=== PATIENT | female | born 1945 | race Caucasian/White ===

== ENCOUNTER 2019-09-12 23:46 | Inpatient (IN) | payer OTHER ==
[~2019-09-12] VITALS: Ht 167.6 cm; Wt 105.2 kg
[2019-09-13] MEDS ORDERED: SODIUM CHLORIDE 0.9% 500 ML IV ONE (00:35)
[2019-09-13] MEDS ORDERED: ONDANSETRON HCL 4 MG/2 ML VIAL IV ONE (00:45)
[2019-09-13 02:43] LABS: Basophils # (auto) 0.1 10 ^3/uL (0-0.2); Basophils % (auto) 0.5 % (0.0-2.0); Eosinophils # (auto) 0.1 10 ^3/uL (0-0.8); Eosinophils % (auto) 0.9 % (0.0-7.0); Hematocrit 43.2 % (36.0-46.0); Hemoglobin 15.1 g/dL (12.2-16.2); Lymphocytes # (auto) 1.9 10 ^3/uL (0.4-5.4); Lymphocytes % (auto) 17.7 % (10.0-50.0); Mean Corpuscular Hemoglobin 31.7 pg (28.0-32.0); Mean Corpuscular Hgb Conc. 34.9 g/dL (32.0-36.0); Mean Corpuscular Volume 90.9 fL (80.0-100.0); Monocytes # (auto) 0.7 10 ^3/uL (0-1.3); Monocytes % (auto) 6.8 % (0.0-12.0); Neutrophils # (auto) 8.1 10 ^3/uL (1.6-8.6); Neutrophils % (auto) 74.1 % (37.0-80.0); Platelet Count (auto) 114 10^3/uL (140-450); Red Blood Cells 4.76 10^6/uL (4.0-5.20); Red Cell Distribution Width 13.6 % (11.8-14.3); White Blood Cell 10.9 10^3/uL (4.4-10.8)
[2019-09-13 02:51] LABS: INR 2.69 (0.9-1.15); Partial Thromboplastin Time 30.4 sec (23.64-32.05)
[2019-09-13 02:55] LABS: Alanine Aminotransferase 137 U/L (13-56); Albumin 3.6 g/dL (3.4-5.0); Anion Gap 7 (5-15); Aspartate Aminotransferase 135 U/L (15-37); BUN/Creatinine Ratio 15.1; Blood Urea Nitrogen 16 mg/dL (7-18); Calcium 8.9 mg/dL (8.5-10.1); Carbon Dioxide 25 mmol/L (21-32); Chloride 105 mmol/L (98-107); GFR African American 65 mL/min; GFR Non-African American 54 mL/min; Glucose 90 mg/dL (74-106); Magnesium 1.8 mg/dL (1.6-2.6); Potassium 3.2 mmol/L (3.5-5.1); Sodium 137 mmol/L (136-145)
[2019-09-13 03:00] LABS: Alkaline Phosphatase 100 U/L (45-117); Bilirubin, Total 1.6 mg/dL (0.2-1.0); Total Protein 9.1 g/dL (6.4-8.2)
[2019-09-13] MEDS ORDERED: PROMETHAZINE HCL 25 MG/ML 1ML IV ONE ×2 (07:30→21:00)
[2019-09-13 08:10] LABS: Urine Bacteria NONE SEEN /hpf (None Seen); Urine Blood Negative /uL (Negative); Urine Specific Gravity 1.007 (1.001-1.035); Urine WBC <1 /hpf (0 - 5)
[2019-09-13] MEDS ORDERED: POTASSIUM EFFERVESENT TAB 25 MEQ PO ONE (08:15)
[2019-09-13] MEDS ORDERED: IOHEXOL 350 MG/ML 100ML IJ ONE (08:30)
[2019-09-13] MEDS ORDERED: PROCHLORPERAZINE EDISYLATE 5 MG/ML 2ML VIAL IV ONE (09:15)
[2019-09-13] MEDS ORDERED: MECLIZINE HCL 25 MG TAB PO ONE (16:15)
[2019-09-13] MEDS ORDERED: SODIUM CHLORIDE 0.9% 1,000 ML IV SCH (21:13)
[2019-09-13] MEDS ORDERED: ACETAMINOPHEN 325 MG TAB PO PRN (21:15)
[2019-09-13] MEDS ORDERED: DEXTROSE (50%) 50ML SYRG IV PRN (21:15)
[2019-09-13] MEDS ORDERED: cloNIDine HCL 0.1 MG TAB PO PRN (21:15)
[2019-09-13] MEDS ORDERED: DOCUSATE SOD 100 MG CAP PO PRN (21:15)
[2019-09-13] MEDS: metroNIDAZOLE 500MG/100ML 100 ML IV SCH (22:06)
[2019-09-13] MEDS: CARVEDILOL 3.125 MG TAB PO SCH (22:07)
[2019-09-13] MEDS: ONDANSETRON HCL 4 MG/2 ML VIAL IV PRN (22:27)
[2019-09-14] MEDS: ACCU-CHEK COMFORT CURVE STRIP VI SCH ×7 (00:36→23:51)
[2019-09-14] MEDS: InsuLIN REG 1unit/0.01ml Soln (100units/ml) SC SCH ×7 (00:36→23:53)
[2019-09-14] MEDS ORDERED: ATOR20TA50 PO (02:09)
[2019-09-14] MEDS ORDERED: AMLO10TA13 PO (02:09)
[2019-09-14] MEDS ORDERED: CARV12.544 PO (02:09)
[2019-09-14] MEDS ORDERED: INSUINJ2 SC (02:09)
[2019-09-14] MEDS ORDERED: WARF1TAB36 PO ×3 (02:09)
[2019-09-14] MEDS ORDERED: INSREG3 IV (02:09)
[2019-09-14] MEDS ORDERED: LOSA100T25 PO (02:09)
[2019-09-14 05:00] VITALS: BP 126/57
[2019-09-14] MEDS: metroNIDAZOLE 500MG/100ML 100 ML IV SCH ×4 (05:21→23:47)
[2019-09-14 06:07] LABS: Basophils # (auto) 0.1 10 ^3/uL (0-0.2); Basophils % (auto) 0.7 % (0.0-2.0); Eosinophils # (auto) 0.1 10 ^3/uL (0-0.8); Eosinophils % (auto) 1.1 % (0.0-7.0); Hematocrit 41.3 % (36.0-46.0); Hemoglobin 14.5 g/dL (12.2-16.2); Lymphocytes # (auto) 2.8 10 ^3/uL (0.4-5.4); Lymphocytes % (auto) 31.7 % (10.0-50.0); Mean Corpuscular Hemoglobin 31.9 pg (28.0-32.0); Mean Corpuscular Hgb Conc. 35.1 g/dL (32.0-36.0); Mean Corpuscular Volume 90.7 fL (80.0-100.0); Monocytes # (auto) 1.1 10 ^3/uL (0-1.3); Neutrophils # (auto) 4.9 10 ^3/uL (1.6-8.6); Neutrophils % (auto) 54.5 % (37.0-80.0); Nucleated Red Blood Cells % 0.1 %; Platelet Count (auto) 109 10^3/uL (140-450); Red Blood Cells 4.55 10^6/uL (4.0-5.20); Red Cell Distribution Width 13.6 % (11.8-14.3)
[2019-09-14 06:27] LABS: Calcium 8.6 mg/dL (8.5-10.1); Potassium 3.2 mmol/L (3.5-5.1)
[2019-09-14] MEDS ORDERED: POTASSIUM CHL 20 Meq TABLET PO ONE ×2 (07:15→11:00)
[2019-09-14 08:00] VITALS: BP 120/63
[2019-09-14] MEDS: CARVEDILOL 3.125 MG TAB PO SCH ×2 (08:56→22:31)
[2019-09-14] MEDS: LISINOPRIL 20 MG TAB PO SCH (08:56)
[2019-09-14 09:00] VITALS: BP 120/63
[2019-09-14] MEDS: D5W/SOD CHL 0.45%/KCL 20MEQ 1,000 ML IV SCH ×2 (11:58→20:31)
[2019-09-14 13:00] VITALS: BP 136/69
[2019-09-14] MEDS: MECLIZINE HCL 25 MG TAB PO SCH ×2 (14:31→22:31)
[2019-09-14] MEDS: ONDANSETRON HCL 4 MG/2 ML VIAL IV PRN (14:31)
[2019-09-14 16:50] VITALS: BP 124/60
[2019-09-14] MEDS: ATORVASTATIN 20 MG TAB PO SCH (16:52)
[2019-09-14 22:00] VITALS: BP 127/70
[2019-09-15] MEDS: ACCU-CHEK COMFORT CURVE STRIP VI SCH ×5 (04:05→21:37)
[2019-09-15] MEDS: InsuLIN REG 1unit/0.01ml Soln (100units/ml) SC SCH ×5 (04:05→20:50)
[2019-09-15] MEDS: D5W/SOD CHL 0.45%/KCL 20MEQ 1,000 ML IV SCH ×2 (04:43→17:00)
[2019-09-15 05:00] VITALS: BP 114/62
[2019-09-15] MEDS: metroNIDAZOLE 500MG/100ML 100 ML IV SCH ×3 (05:36→17:14)
[2019-09-15] MEDS: MECLIZINE HCL 25 MG TAB PO SCH ×3 (05:38→21:37)
[2019-09-15 05:58] LABS: BUN/Creatinine Ratio 16.3; Magnesium 1.8 mg/dL (1.6-2.6); Potassium 3.5 mmol/L (3.5-5.1)
[2019-09-15 09:00] VITALS: BP 128/89
[2019-09-15] MEDS: LISINOPRIL 20 MG TAB PO SCH (09:25)
[2019-09-15] MEDS: CARVEDILOL 3.125 MG TAB PO SCH ×2 (09:26→21:36)
[2019-09-15 12:40] VITALS: BP 126/72
[2019-09-15] MEDS: ONDANSETRON HCL 4 MG/2 ML VIAL IV PRN ×2 (13:37→17:14)
[2019-09-15] MEDS ORDERED: MECLIZINE HCL 25 MG TAB PO ONE (14:00)
[2019-09-15 17:11] VITALS: BP 122/76
[2019-09-15] MEDS: ATORVASTATIN 20 MG TAB PO SCH (17:14)
[2019-09-15 21:53] VITALS: BP 147/66
[2019-09-16] MEDS: ACCU-CHEK COMFORT CURVE STRIP VI SCH ×6 (00:20→20:48)
[2019-09-16] MEDS: metroNIDAZOLE 500MG/100ML 100 ML IV SCH ×4 (00:30→17:08)
[2019-09-16] MEDS: InsuLIN REG 1unit/0.01ml Soln (100units/ml) SC SCH ×6 (00:30→20:55)
[2019-09-16] MEDS: ONDANSETRON HCL 4 MG/2 ML VIAL IV PRN ×3 (01:06→22:00)
[2019-09-16] MEDS: D5W/SOD CHL 0.45%/KCL 20MEQ 1,000 ML IV SCH ×3 (03:00→22:40)
[2019-09-16 05:04] VITALS: BP 134/73
[2019-09-16 05:56] LABS: Potassium 3.6 mmol/L (3.5-5.1)
[2019-09-16 06:06] LABS: BUN/Creatinine Ratio 10.8; Calcium 8.2 mg/dL (8.5-10.1)
[2019-09-16] MEDS: MECLIZINE HCL 25 MG TAB PO SCH ×3 (06:24→22:39)
[2019-09-16 09:28] VITALS: BP 139/66
[2019-09-16] MEDS: LISINOPRIL 20 MG TAB PO SCH (09:34)
[2019-09-16] MEDS: CARVEDILOL 3.125 MG TAB PO SCH ×2 (09:34→22:39)
[2019-09-16 11:14] LABS: INR 1.35 (0.9-1.15)
[2019-09-16 12:55] VITALS: BP 143/80
[2019-09-16] MEDS: ATORVASTATIN 20 MG TAB PO SCH (17:09)
[2019-09-16 17:22] VITALS: BP 134/70
[2019-09-16 21:59] VITALS: BP 149/76
[2019-09-17] MEDS: metroNIDAZOLE 500MG/100ML 100 ML IV SCH ×4 (00:54→18:37)
[2019-09-17] MEDS: ACCU-CHEK COMFORT CURVE STRIP VI SCH ×6 (00:54→20:41)
[2019-09-17] MEDS: InsuLIN REG 1unit/0.01ml Soln (100units/ml) SC SCH ×6 (00:55→20:37)
[2019-09-17 04:37] VITALS: BP 146/87
[2019-09-17] MEDS: ONDANSETRON HCL 4 MG/2 ML VIAL IV PRN ×2 (04:52→09:03)
[2019-09-17] MEDS: MECLIZINE HCL 25 MG TAB PO SCH ×3 (04:53→21:45)
[2019-09-17 05:58] LABS: Basophils # (auto) 0.1 10 ^3/uL (0-0.2); Basophils % (auto) 0.7 % (0.0-2.0); Eosinophils # (auto) 0.1 10 ^3/uL (0-0.8); Eosinophils % (auto) 1.9 % (0.0-7.0); Hematocrit 41.7 % (36.0-46.0); Hemoglobin 14.9 g/dL (12.2-16.2); Lymphocytes # (auto) 2.6 10 ^3/uL (0.4-5.4); Lymphocytes % (auto) 34.9 % (10.0-50.0); Mean Corpuscular Hemoglobin 31.8 pg (28.0-32.0); Mean Corpuscular Hgb Conc. 35.8 g/dL (32.0-36.0); Monocytes # (auto) 0.9 10 ^3/uL (0-1.3); Monocytes % (auto) 11.6 % (0.0-12.0); Neutrophils # (auto) 3.8 10 ^3/uL (1.6-8.6); Neutrophils % (auto) 50.9 % (37.0-80.0); Nucleated Red Blood Cells % 0.9 %; Platelet Count (auto) 106 10^3/uL (140-450); Red Blood Cells 4.68 10^6/uL (4.0-5.20); Red Cell Distribution Width 13.1 % (11.8-14.3); White Blood Cell 7.6 10^3/uL (4.4-10.8)
[2019-09-17 06:13] LABS: BUN/Creatinine Ratio 10.4; Calcium 8.4 mg/dL (8.5-10.1); INR 1.29 (0.9-1.15); Magnesium 1.8 mg/dL (1.6-2.6); Partial Thromboplastin Time 29.1 sec (23.64-32.05); Potassium 3.4 mmol/L (3.5-5.1)
[2019-09-17] MEDS ORDERED: MIDAZOLAM HCL 5 MG/ML-1ML VIAL ONE (08:23)
[2019-09-17] MEDS ORDERED: SODIUM CHLORIDE LOCK 10 ML ONE (08:23)
[2019-09-17] MEDS ORDERED: LIDOCAINE VISCOUS 2% 15ML UD ONE (08:23)
[2019-09-17] MEDS ORDERED: diphenhdrAMINE HCL 50 MG/1 ML VL ONE (08:23)
[2019-09-17] MEDS ORDERED: fentaNYL CITRATE 100 MCG/2 ML VL ONE (08:24)
[2019-09-17 09:00] VITALS: BP 140/73
[2019-09-17] MEDS: CARVEDILOL 3.125 MG TAB PO SCH ×2 (11:56→21:46)
[2019-09-17] MEDS: PANTOPRAZOLE 40 MG TAB PO SCH ×2 (11:57→21:46)
[2019-09-17] MEDS: LISINOPRIL 20 MG TAB PO SCH (11:57)
[2019-09-17 13:00] VITALS: BP 126/85
[2019-09-17] MEDS ORDERED: POTASSIUM CHL 20 Meq TABLET PO ONE (15:00)
[2019-09-17] MEDS: D5W/SOD CHL 0.45%/KCL 20MEQ 1,000 ML IV SCH ×2 (16:20→21:45)
[2019-09-17 17:00] VITALS: BP 130/71
[2019-09-17] MEDS: ATORVASTATIN 20 MG TAB PO SCH (18:00)
[2019-09-17 22:38] VITALS: BP 135/81
[2019-09-18] MEDS: InsuLIN REG 1unit/0.01ml Soln (100units/ml) SC SCH ×4 (00:51→11:51)
[2019-09-18] MEDS: ACCU-CHEK COMFORT CURVE STRIP VI SCH ×4 (00:51→11:50)
[2019-09-18] MEDS: metroNIDAZOLE 500MG/100ML 100 ML IV SCH ×3 (00:52→11:50)
[2019-09-18 05:00] VITALS: BP 130/70
[2019-09-18] MEDS: D5W/SOD CHL 0.45%/KCL 20MEQ 1,000 ML IV SCH ×2 (05:00→12:12)
[2019-09-18] MEDS: MECLIZINE HCL 25 MG TAB PO SCH ×2 (05:07→13:44)
[2019-09-18 06:38] LABS: BUN/Creatinine Ratio 8.3; Potassium 3.7 mmol/L (3.5-5.1)
[2019-09-18 08:00] VITALS: BP 153/85
[2019-09-18] MEDS: LISINOPRIL 20 MG TAB PO SCH (10:52)
[2019-09-18] MEDS: CARVEDILOL 3.125 MG TAB PO SCH (10:52)
[2019-09-18] MEDS: PANTOPRAZOLE 40 MG TAB PO SCH (10:52)
[2019-09-18 12:00] VITALS: BP 144/83
[2019-09-18 15:04] VITALS: BP 144/83
== END 2019-09-18 15:58 | disposition home or self-care (01) | DRG 392 ==
LOC: EDBD 23:46 → ER 23:49 → OVERFLOW 23:50 → WEST WING 09-13 23:23 → TELE-WESTW 09-17 11:25
PROVIDERS: ADMIT Hospitalist; ATTEND Internal Medicine Geriatric Medicine
PROC: 0DB68ZX Excision of Stomach, Via Natural or Artificial Opening Endoscopic, Diagnostic (ICD-10-PCS; principal; 2019-09-17 10:28)
DX: K29.70 Gastritis, unspecified, without bleeding (principal); N17.9 Acute kidney failure, unspecified; K29.80 Duodenitis without bleeding; H81.10 Benign paroxysmal vertigo, unspecified ear; E87.6 Hypokalemia; R79.89 Other specified abnormal findings of blood chemistry; N18.9 Chronic kidney disease, unspecified; K21.9 Gastro-esophageal reflux disease without esophagitis; I12.9 Hypertensive chronic kidney disease with stage 1 through stage 4 chronic kidney disease, or unspecified chronic kidney disease; E78.5 Hyperlipidemia, unspecified; I48.91 Unspecified atrial fibrillation; Z79.01 Long term (current) use of anticoagulants; Z90.710 Acquired absence of both cervix and uterus
CPT/HCPCS: 36415; 43239; 70450; 70551; 71045; 71275; 74176; 76705; 80048; 80053; 80061; 81001; 82140; 82962; 83036; 83605; 83690; 83735; 83880; 84484; 85025; 85379; 85610; 85730; 86850; 86900; 86901; 93005; 96361; 96374; 96375; G0378; J1815; J2250; J2405; J3490

== ENCOUNTER 2022-08-21 10:46 | Emergency (ER) | payer OTHER ==
[~2022-08-21] VITALS: Ht 167.6 cm; Wt 109.0 kg
[~2022-08-21 10:46] MED LIST: AMLO-496 PO; ATOR20TA50 PO; CARV12.544 PO; INSREG3 IV; INSUINJ2 SC; LOSA100T25 PO; WARF1TAB36 PO
[2022-08-21] MEDS ORDERED: ONDANSETRON HCL 4 MG/2 ML VIAL IV ONE (11:00)
[2022-08-21 11:24] LABS: Basophils # (auto) 0.1 10 ^3/uL (0-0.2); Basophils % (auto) 0.7 % (0.0-2.0); Eosinophils # (auto) 0.1 10 ^3/uL (0-0.8); Eosinophils % (auto) 1.9 % (0.0-7.0); Hematocrit 44.6 % (36.0-46.0); Hemoglobin 15.6 g/dL (12.2-16.2); Lymphocytes # (auto) 1.8 10 ^3/uL (0.4-5.4); Lymphocytes % (auto) 24.3 % (10.0-50.0); Mean Corpuscular Hemoglobin 31.5 pg (28.0-32.0); Mean Corpuscular Volume 89.9 fL (80.0-100.0); Monocytes # (auto) 0.7 10 ^3/uL (0-1.3); Monocytes % (auto) 9.5 % (0.0-12.0); Neutrophils # (auto) 4.8 10 ^3/uL (1.6-8.6); Neutrophils % (auto) 63.6 % (37.0-80.0); Nucleated Red Blood Cells % 0.2 %; Red Blood Cells 4.96 10^6/uL (4.0-5.20); Red Cell Distribution Width 13.7 % (11.8-14.3); White Blood Cell 7.6 10^3/uL (4.4-10.8)
[2022-08-21 11:39] LABS: INR 3.28 (0.9-1.15); Partial Thromboplastin Time 47.8 sec (24.6-33.4); Potassium 3.6 mmol/L (3.5-5.1)
[2022-08-21 11:51] LABS: Albumin 3.9 g/dL (3.4-5.0); BUN/Creatinine Ratio 13.3 (10.0-20.0); Magnesium 1.9 mg/dL (1.6-2.6); Total Protein 8.5 g/dL (6.4-8.2)
[2022-08-21 12:02] LABS: Bilirubin, Total 1.7 mg/dL (0.2-1.0)
[2022-08-21 12:55] LABS: Urine Bacteria FEW /hpf (None Seen); Urine Blood Negative /uL (Negative); Urine Hyaline Cast FEW /lpf (0 - 2); Urine Specific Gravity 1.013 (1.001-1.035); Urine WBC 12 /hpf (0 - 5)
[2022-08-21] MEDS ORDERED: ONDA-144 PO (13:35)
[2022-08-21] MEDS ORDERED: CIPR-173 PO (13:35)
[2022-08-21 13:45] VITALS: BP 115/65
== END 2022-08-21 13:49 | disposition home or self-care (01) ==
LOC: ER 10:46
DX: N39.0 Urinary tract infection, site not specified (principal); R11.10 Vomiting, unspecified; I12.9 Hypertensive chronic kidney disease with stage 1 through stage 4 chronic kidney disease, or unspecified chronic kidney disease; E11.22 Type 2 diabetes mellitus with diabetic chronic kidney disease; N18.30 Chronic kidney disease, stage 3 unspecified; I25.2 Old myocardial infarction; E78.5 Hyperlipidemia, unspecified; I48.91 Unspecified atrial fibrillation; Z86.73 Personal history of transient ischemic attack (TIA), and cerebral infarction without residual deficits; Z90.710 Acquired absence of both cervix and uterus; Z90.89 Acquired absence of other organs; Z79.4 Long term (current) use of insulin; Z79.01 Long term (current) use of anticoagulants; Z79.899 Other long term (current) drug therapy; Z88.5 Allergy status to narcotic agent
CPT/HCPCS: 36415; 74176; 80053; 81001; 83690; 83735; 85025; 85610; 85730; 96374; 99285; J2405

== ENCOUNTER 2022-09-19 13:31 | Inpatient (IN) | payer OTHER ==
[~2022-09-19] VITALS: Ht 167.6 cm; Wt 111.2 kg
[~2022-09-19 13:31] MED LIST changes: -AMLO-496 PO; +AMLO1TAB23 PO; -ATOR20TA50 PO; +ATOR40TA52 PO; +EZET-10 PO; +LEVO500T31 PO; +WARF-114 PO; -WARF1TAB36 PO; +WARF4TAB70 PO
[2022-09-19 14:23] LABS: Hematocrit 34.3 % (36.0-46.0); Hemoglobin 11.9 g/dL (12.2-16.2); Mean Corpuscular Hemoglobin 31.7 pg (28.0-32.0); Mean Corpuscular Hgb Conc. 34.8 g/dL (32.0-36.0); Mean Corpuscular Volume 90.9 fL (80.0-100.0); Red Blood Cells 3.77 10^6/uL (4.0-5.20); Red Cell Distribution Width 13.5 % (11.8-14.3); White Blood Cell 5.1 10^3/uL (4.4-10.8)
[2022-09-19 14:27] LABS: Band Neutrophils % (manual) 0; Basophils % (manual) 0 (0.0-2.0); Blast Cells 0; Metamyelocytes % 0; Myelocytes % 0; Promyelocytes % 0; Reactive Lymphocytes 0
[2022-09-19 14:40] LABS: Albumin 2.8 g/dL (3.4-5.0); Calcium 7.4 mg/dL (8.5-10.1); Potassium 3.9 mmol/L (3.5-5.1)
[2022-09-19 14:43] LABS: Eosinophils % (manual) 1 (0-7); Lymphocytes % (manual) 22 (10.0-50.0); Monocytes % (manual) 17 (0-12)
[2022-09-19 14:44] LABS: BUN/Creatinine Ratio 13.3 (10.0-20.0); Bilirubin, Total 2.4 mg/dL (0.2-1.0); Total Protein 8.9 g/dL (6.4-8.2)
[2022-09-19] MEDS ORDERED: FUROSEMIDE 20 MG/2 ML VIAL IV ONE (15:30)
[2022-09-19 15:58] LABS: Urine Bacteria NONE SEEN /hpf (None Seen); Urine Blood Negative /uL (Negative); Urine Specific Gravity 1.012 (1.001-1.035); Urine WBC 3 /hpf (0 - 5)
[2022-09-19] MEDS ORDERED: ONDANSETRON ODT 4 MG TAB ONE (15:59)
[2022-09-19] MEDS ORDERED: ONDANSETRON ODT 4 MG TAB PO ONE (16:15)
[2022-09-19] MEDS ORDERED: ACETAMINOPHEN 325 MG TAB PO PRN (18:30)
[2022-09-19] MEDS ORDERED: cefTRIAXone 1GM/50ML D5W 50 ML IV ONE (18:30)
[2022-09-19] MEDS ORDERED: ALBUTEROL SULF 2.5 MG/0.5ML(0.5%) NEB SOLN NEB PRN (18:30)
[2022-09-19 19:22] LABS: Cholesterol 72 mg/dL (< 200)
[2022-09-19 19:24] LABS: HDL Cholesterol 22 mg/dL (40-59); LDL Cholesterol 34 mg/dL (< 100); Triglycerides 120 mg/dL (< 150)
[2022-09-19 19:51] VITALS: BP 165/97
[2022-09-19] MEDS: IPRATROPIUM BROM 0.5 MG/2.5ML INH SOL NEB SCH (22:31)
[2022-09-19] MEDS: ALBUTEROL SULF 2.5 MG/0.5ML(0.5%) NEB SOLN NEB SCH (22:31)
[2022-09-20] MEDS: IPRATROPIUM BROM 0.5 MG/2.5ML INH SOL NEB SCH ×7 (02:24→21:52)
[2022-09-20] MEDS: ALBUTEROL SULF 2.5 MG/0.5ML(0.5%) NEB SOLN NEB SCH ×7 (02:24→21:52)
[2022-09-20 06:04] LABS: Potassium 3.8 mmol/L (3.5-5.1)
[2022-09-20 06:13] LABS: Albumin 3.1 g/dL (3.4-5.0); BUN/Creatinine Ratio 14.4 (10.0-20.0); Bilirubin, Total 2.4 mg/dL (0.2-1.0); Calcium 8.4 mg/dL (8.5-10.1); Total Protein 10.6 g/dL (6.4-8.2)
[2022-09-20 06:32] LABS: Basophils # (auto) 0 10 ^3/uL (0-0.2); Basophils % (auto) 0.4 % (0.0-2.0); Eosinophils # (auto) 0 10 ^3/uL (0-0.8); Eosinophils % (auto) 0.3 % (0.0-7.0); Hematocrit 36.5 % (36.0-46.0); Hemoglobin 12.9 g/dL (12.2-16.2); Lymphocytes # (auto) 1.2 10 ^3/uL (0.4-5.4); Lymphocytes % (auto) 18.4 % (10.0-50.0); Mean Corpuscular Hemoglobin 32.2 pg (28.0-32.0); Mean Corpuscular Hgb Conc. 35.5 g/dL (32.0-36.0); Mean Corpuscular Volume 90.7 fL (80.0-100.0); Monocytes % (auto) 15.7 % (0.0-12.0); Neutrophils # (auto) 4.3 10 ^3/uL (1.6-8.6); Neutrophils % (auto) 65.2 % (37.0-80.0); Nucleated Red Blood Cells % 0.7 %; Red Blood Cells 4.02 10^6/uL (4.0-5.20); Red Cell Distribution Width 13.7 % (11.8-14.3); White Blood Cell 6.7 10^3/uL (4.4-10.8)
[2022-09-20] MEDS: cefTRIAXone 1GM/50ML D5W 50 ML IV SCH (08:24)
[2022-09-20 09:59] LABS: Hepatitis A Ab IgM Negative; Hepatitis B Core IgM Negative; Hepatitis C Antibody Negative (Negative)
[2022-09-20] MEDS ORDERED: FUROSEMIDE 40 MG/4 ML VIAL IV ONE (12:15)
[2022-09-20] MEDS ORDERED: amLODIPine BESYLATE 5 MG TAB PO ONE (14:00)
[2022-09-20 14:54] LABS: INR 3.32 (0.9-1.15); Partial Thromboplastin Time 50.8 sec (24.6-33.4)
[2022-09-20 16:15] VITALS: BP 137/54
[2022-09-20 17:00] VITALS: BP 137/54
[2022-09-20] MEDS: INSULIN NPH Isophane (HUMAN) 1unit/0.01ml Susp(100units/ml) SC SCH (18:17)
[2022-09-20 20:00] VITALS: BP 147/54
[2022-09-20 22:00] VITALS: BP 147/57
[2022-09-20] MEDS: ATORVASTATIN 20 MG TAB PO SCH (22:03)
[2022-09-20] MEDS: CARVEDILOL 3.125 MG TAB PO SCH (22:03)
[2022-09-21] MEDS: IPRATROPIUM BROM 0.5 MG/2.5ML INH SOL NEB SCH ×6 (02:00→22:00)
[2022-09-21] MEDS: ALBUTEROL SULF 2.5 MG/0.5ML(0.5%) NEB SOLN NEB SCH ×6 (02:00→22:00)
[2022-09-21 05:00] VITALS: BP 123/59
[2022-09-21 06:16] LABS: Hematocrit 33.1 % (36.0-46.0); Hemoglobin 11.6 g/dL (12.2-16.2); Mean Corpuscular Hemoglobin 31.6 pg (28.0-32.0); Mean Corpuscular Volume 90.4 fL (80.0-100.0); Red Blood Cells 3.66 10^6/uL (4.0-5.20); Red Cell Distribution Width 13.5 % (11.8-14.3); White Blood Cell 6.4 10^3/uL (4.4-10.8)
[2022-09-21 06:24] LABS: INR 3.44 (0.9-1.15); Partial Thromboplastin Time 49.1 sec (24.6-33.4)
[2022-09-21] MEDS: INSULIN NPH Isophane (HUMAN) 1unit/0.01ml Susp(100units/ml) SC SCH ×2 (06:26→17:50)
[2022-09-21 06:27] LABS: Calcium 7.7 mg/dL (8.5-10.1); Magnesium 1.6 mg/dL (1.6-2.6); Potassium 3.5 mmol/L (3.5-5.1)
[2022-09-21 06:30] LABS: BUN/Creatinine Ratio 15.1 (10.0-20.0)
[2022-09-21 06:47] LABS: Band Neutrophils % (manual) 0; Basophils % (manual) 0 (0.0-2.0); Blast Cells 0; Metamyelocytes % 0; Myelocytes % 0; Promyelocytes % 0; Reactive Lymphocytes 0
[2022-09-21 08:28] LABS: Eosinophils % (manual) 1 (0-7); Lymphocytes % (manual) 23 (10.0-50.0); Monocytes % (manual) 14 (0-12)
[2022-09-21 09:00] VITALS: BP 122/57
[2022-09-21] MEDS: CARVEDILOL 3.125 MG TAB PO SCH ×3 (10:18→21:59)
[2022-09-21] MEDS: FUROSEMIDE 40 MG/4 ML VIAL IV SCH (10:18)
[2022-09-21] MEDS: amLODIPine BESYLATE 5 MG TAB PO SCH (10:18)
[2022-09-21] MEDS: cefTRIAXone 1GM/50ML D5W 50 ML IV SCH (10:19)
[2022-09-21 12:37] VITALS: BP 124/76
[2022-09-21 17:00] VITALS: BP 115/47
[2022-09-21 20:00] VITALS: BP 106/65
[2022-09-21] MEDS: ATORVASTATIN 20 MG TAB PO SCH (21:57)
[2022-09-21 22:57] VITALS: BP 106/65
[2022-09-22] MEDS: IPRATROPIUM BROM 0.5 MG/2.5ML INH SOL NEB SCH ×6 (02:00→21:52)
[2022-09-22] MEDS: ALBUTEROL SULF 2.5 MG/0.5ML(0.5%) NEB SOLN NEB SCH ×6 (02:00→21:52)
[2022-09-22 05:00] VITALS: BP 104/72
[2022-09-22] MEDS: INSULIN NPH Isophane (HUMAN) 1unit/0.01ml Susp(100units/ml) SC SCH ×2 (06:32→18:07)
[2022-09-22 07:12] LABS: BUN/Creatinine Ratio 13.2 (10.0-20.0); Potassium 3.3 mmol/L (3.5-5.1)
[2022-09-22 07:26] LABS: INR 2.33 (0.9-1.15); Partial Thromboplastin Time 44.1 sec (24.6-33.4)
[2022-09-22 08:00] VITALS: BP 125/75
[2022-09-22] MEDS ORDERED: POTASSIUM CHL 20 Meq TABLET PO ONE (08:15)
[2022-09-22] MEDS: amLODIPine BESYLATE 5 MG TAB PO SCH (09:06)
[2022-09-22] MEDS: CARVEDILOL 3.125 MG TAB PO SCH ×2 (09:07→21:55)
[2022-09-22] MEDS: cefTRIAXone 1GM/50ML D5W 50 ML IV SCH (09:07)
[2022-09-22] MEDS: FUROSEMIDE 40 MG/4 ML VIAL IV SCH (09:07)
[2022-09-22] MEDS ORDERED: DEXTROSE (50%) 50ML SYRG IV PRN (11:45)
[2022-09-22 13:06] VITALS: BP 119/69
[2022-09-22 16:34] VITALS: BP 111/51
[2022-09-22] MEDS ORDERED: WARFARIN SODIUM 5 MG TAB PO ONE (17:00)
[2022-09-22] MEDS ORDERED: WARFARIN SODIUM 2 MG TAB PO ONE (17:00)
[2022-09-22] MEDS: ACCU-CHEK COMFORT CURVE STRIP VI SCH ×2 (17:23→21:55)
[2022-09-22] MEDS: InsuLIN REG 1unit/0.01ml Soln (100units/ml) SC SCH ×2 (18:05→22:02)
[2022-09-22 20:00] VITALS: BP 104/57
[2022-09-22] MEDS: ATORVASTATIN 20 MG TAB PO SCH (21:54)
[2022-09-22 22:00] VITALS: BP 104/57
[2022-09-23] MEDS: IPRATROPIUM BROM 0.5 MG/2.5ML INH SOL NEB SCH ×6 (02:00→21:44)
[2022-09-23] MEDS: ALBUTEROL SULF 2.5 MG/0.5ML(0.5%) NEB SOLN NEB SCH ×6 (02:00→21:44)
[2022-09-23 05:00] VITALS: BP 109/47
[2022-09-23] MEDS: ACCU-CHEK COMFORT CURVE STRIP VI SCH ×4 (06:18→21:50)
[2022-09-23] MEDS: InsuLIN REG 1unit/0.01ml Soln (100units/ml) SC SCH ×4 (06:19→21:51)
[2022-09-23] MEDS: INSULIN NPH Isophane (HUMAN) 1unit/0.01ml Susp(100units/ml) SC SCH ×2 (06:20→16:58)
[2022-09-23 06:23] LABS: Calcium 8.1 mg/dL (8.5-10.1); Potassium 3.4 mmol/L (3.5-5.1)
[2022-09-23 06:26] LABS: BUN/Creatinine Ratio 12.8 (10.0-20.0)
[2022-09-23 06:40] LABS: INR 1.69 (0.9-1.15); Partial Thromboplastin Time 40.7 sec (24.6-33.4)
[2022-09-23] MEDS ORDERED: POTASSIUM CHL 20 Meq TABLET PO ONE (08:45)
[2022-09-23] MEDS: FUROSEMIDE 40 MG/4 ML VIAL IV SCH (08:50)
[2022-09-23] MEDS: CARVEDILOL 3.125 MG TAB PO SCH ×2 (08:51→21:50)
[2022-09-23] MEDS: amLODIPine BESYLATE 5 MG TAB PO SCH (08:52)
[2022-09-23] MEDS: cefTRIAXone 1GM/50ML D5W 50 ML IV SCH (08:52)
[2022-09-23 09:00] VITALS: BP 137/65
[2022-09-23 13:00] VITALS: BP 138/66
[2022-09-23 17:00] VITALS: BP 112/48
[2022-09-23] MEDS ORDERED: WARFARIN SODIUM 5 MG TAB PO SCH (17:00)
[2022-09-23] MEDS ORDERED: WARFARIN SODIUM 2 MG TAB PO ONE (17:00)
[2022-09-23] MEDS ORDERED: WARFARIN SODIUM 2 MG TAB PO SCH (17:00)
[2022-09-23] MEDS ORDERED: WARFARIN SODIUM 5 MG TAB PO ONE (17:00)
[2022-09-23] MEDS: ATORVASTATIN 20 MG TAB PO SCH (21:50)
[2022-09-23 22:00] VITALS: BP 117/49
[2022-09-24] MEDS: ALBUTEROL SULF 2.5 MG/0.5ML(0.5%) NEB SOLN NEB SCH ×4 (02:00→14:00)
[2022-09-24] MEDS: IPRATROPIUM BROM 0.5 MG/2.5ML INH SOL NEB SCH ×4 (02:00→14:00)
[2022-09-24 05:00] VITALS: BP 117/84
[2022-09-24] MEDS: INSULIN NPH Isophane (HUMAN) 1unit/0.01ml Susp(100units/ml) SC SCH ×2 (06:47→18:06)
[2022-09-24] MEDS: InsuLIN REG 1unit/0.01ml Soln (100units/ml) SC SCH ×3 (06:47→18:05)
[2022-09-24] MEDS: ACCU-CHEK COMFORT CURVE STRIP VI SCH ×3 (06:47→17:00)
[2022-09-24 06:51] LABS: Calcium 8.3 mg/dL (8.5-10.1); INR 1.58 (0.9-1.15); Potassium 3.7 mmol/L (3.5-5.1)
[2022-09-24 09:00] VITALS: BP 120/46
[2022-09-24] MEDS: cefTRIAXone 1GM/50ML D5W 50 ML IV SCH ×2 (09:00→09:53)
[2022-09-24] MEDS: FUROSEMIDE 40 MG/4 ML VIAL IV SCH ×2 (09:51→10:00)
[2022-09-24] MEDS: amLODIPine BESYLATE 5 MG TAB PO SCH (09:52)
[2022-09-24] MEDS: CARVEDILOL 3.125 MG TAB PO SCH (09:53)
[2022-09-24 13:00] VITALS: BP 124/76
[2022-09-24] MEDS ORDERED: FURO1TAB33 PO (14:30)
[2022-09-24 15:15] VITALS: BP 124/76
[2022-09-24 15:45] LABS: Albumin 2.5 g/dL (3.4-5.0); Potassium 3.6 mmol/L (3.5-5.1)
[2022-09-24 15:48] LABS: Bilirubin, Total 1.7 mg/dL (0.2-1.0); Total Protein 10.1 g/dL (6.4-8.2)
[2022-09-24] MEDS ORDERED: WARFARIN SODIUM 2 MG TAB PO ONE (17:00)
[2022-09-24] MEDS ORDERED: WARFARIN SODIUM 5 MG TAB PO ONE ×2 (17:00)
[2022-09-24 17:21] VITALS: BP_SYST 110; BP_SYST 119; BP_DIAS 52; BP_DIAS 66
== END 2022-09-24 18:00 | disposition home or self-care (01) | DRG 291 ==
LOC: EDBD 13:31 → ER 13:31 → OVERFLOW 18:28 → WEST WING 09-20 15:24 → TELE-WESTW 09-20 20:05
PROVIDERS: ADMIT Nurse Practitioner Family; ATTEND Internal Medicine Geriatric Medicine
DX: I13.0 Hypertensive heart and chronic kidney disease with heart failure and stage 1 through stage 4 chronic kidney disease, or unspecified chronic kidney disease (principal); I50.43 Acute on chronic combined systolic (congestive) and diastolic (congestive) heart failure; J96.01 Acute respiratory failure with hypoxia; N30.00 Acute cystitis without hematuria; I48.91 Unspecified atrial fibrillation; E78.5 Hyperlipidemia, unspecified; E11.22 Type 2 diabetes mellitus with diabetic chronic kidney disease; E66.01 Morbid (severe) obesity due to excess calories; Z79.01 Long term (current) use of anticoagulants; Z68.39 Body mass index [BMI] 39.0-39.9, adult; Z79.899 Other long term (current) drug therapy; Z82.49 Family history of ischemic heart disease and other diseases of the circulatory system; Z86.73 Personal history of transient ischemic attack (TIA), and cerebral infarction without residual deficits; Z90.710 Acquired absence of both cervix and uterus; Z88.5 Allergy status to narcotic agent
CPT/HCPCS: 36415; 36600; 71046; 76705; 80048; 80053; 80061; 80074; 81001; 82805; 82962; 83735; 83880; 83930; 84443; 84484; 85007; 85025; 85027; 85379; 85610; 85730; 87081; 87086; 93005; 93306; 94640; G0378; J0696; J1815; Q0162